=== PATIENT | male | born 1940 | race Caucasian/White ===

== ENCOUNTER 2020-11-16 21:52 | Inpatient (IN) | payer MEDICARE ==
[2020-11-16 23:01] LABS: Bilirubin Negative (Negative); Blood, Urine Negative (Negative); Clarity Clear (Clear); Glucose, Urine (Dipstick) Greater than 1000 mg/dL (Negative); Ketone, Urine Negative (Negative); Leukocyte Negative Leu/uL (Negative); Nitrite Negative (Negative); Protein, Urine (Dipstick) Negative (Neg-Trace); Specific Gravity, Urine 1.027 (1.002-1.036); Urobilinogen Normal mg/dL (Less than 2); pH, Urine 5.5 (5.0-9.0)
[2020-11-16 23:08] LABS: Hemoglobin 14.6 g/dL (14.0-18.0); Mean Corpuscular HGB CONC 33.7 g/dL (32.0-36.0); Mean Corpuscular Hemoglobin 31.8 pg (27.0-31.0); Mean Corpuscular Volume 94.3 fL (78.0-98.0); Mean Platelet Volume 7.1 fL (7.4-10.4); Platelet Count 169 thou/uL (130-400); Red Blood Cell (RBC) Count 4.59 mill/uL (4.70-6.10); White Blood Cell (WBC) Count 10.5 thou/uL (4.8-10.8)
[2020-11-16 23:25] LABS: Band 6 % (5-11); Lymphocytes 13 % (21-51); MDiff Complete? YES; Monocytes 4 % (0-10); Neutrophil 75 % (42-75); Platelet Morphology Comment Appears Adequate; RBC Morphology Normal; Reactive Lymphocytes 2 % (0-10)
[2020-11-16 23:29] LABS: ALT (SGPT) 14 U/L (8-55); AST (SGOT) 19 U/L (5-34); Albumin 3.5 g/dL (3.4-4.8); Alkaline Phosphatase 58 U/L (40-110); Anion Gap 13 mmol/L (10-20); BUN (Urea Nitrogen) 19 mg/dL (8.4-25.7); Bilirubin, Total 0.7 mg/dL (0.2-1.2); Calc. Creatinine Clearance 0 mL/min (70-130); Calcium 8.8 mg/dL (7.8-10.44); Carbon Dioxide 21 mmol/L (23-31); Chloride 108 mmol/L (98-107); Globulin 2.9 g/dL (2.4-3.5); Glucose 136 mg/dL (83-110); Lipase 30 U/L (8-78); Protein, Total 6.4 g/dL (5.8-8.1); Sodium 138 mmol/L (136-145)
[2020-11-16] MEDS ORDERED: Cefepime 1 GM VIAL ONE (23:35)
[2020-11-16] MEDS ORDERED: VANCOMYCIN 2 GRAM/400 ML BAG 2 GM in Premix Bag 1 BAG IVPB SCH (23:45)
[2020-11-17] MEDS ORDERED: Ondansetron PF 4 MG/2 ML Vial IVP PRN (02:45)
[2020-11-17] MEDS ORDERED: Acetaminophen 325 MG TAB PO PRN (02:45)
[2020-11-17] MEDS ORDERED: Ondansetron ODT 4 MG TAB SL PRN (02:45)
[2020-11-17 03:12] VITALS: BMI 39.3
[2020-11-17] MEDS ORDERED: HumaLOG 300 UNITS/3 ML VIAL SC PRN (04:17)
[2020-11-17] MEDS ORDERED: Dextrose 50% Abboject 50 ML SYRINGE SLOW IVP PRN (04:17)
[2020-11-17] MEDS ORDERED: Dextrose 5% in Water 1,000 ML IV PRN (04:17)
[2020-11-17] MEDS ORDERED: Benzonatate 100 MG CAP PO PRN (04:55)
[2020-11-17] MEDS ORDERED: Rivaroxaban 10 MG TAB PO SCH (09:00)
[2020-11-17] MEDS ORDERED: FLU VACC QS2020-21(65YR UP)/PF 240 MCG/0.7 ML SYRINGE IM ONE (09:00)
[2020-11-17] MEDS: Vancomycin 1 GM in Premix Bag 1 BAG IVPB SCH (11:53)
[2020-11-17] MEDS ORDERED: Cefepime 2 GM in Sodium Chloride 0.9% 100 ML IVPB SCH (12:00)
[2020-11-17] MEDS ORDERED: Polyethylene Glycol 3350 17 GM Packet PO PRN (18:46)
[2020-11-17] MEDS: Acetaminophen 325 MG TAB PO PRN (20:21)
[2020-11-17] MEDS: Metoprolol Tartrate 50 MG TAB PO SCH (20:26)
[2020-11-17] MEDS ORDERED: Tamsulosin HCl 0.4 MG CAP PO SCH (21:00)
[2020-11-18] MEDS: Vancomycin 1 GM in Premix Bag 1 BAG IVPB SCH (00:02)
[2020-11-18] MEDS: Acetaminophen 325 MG TAB PO PRN (01:47)
[2020-11-18 05:33] LABS: #Eosinphils 0.3 thou/uL (0.0-0.7); #Lymphocytes 1.3 thou/uL (1.20-3.40); #Monocytes 0.5 thou/uL (0.11-0.59); #Neutrophils 3.1 thou/uL (1.40-6.50); %Basophils 0.4 % (0.0-1.0); %Eosinophils 5.8 % (0.0-10.0); %Lymphocytes 24.8 % (21.0-51.0); %Monocytes 10.2 % (0.0-10.0); %Neutrophils 58.7 % (42.0-75.0); Hemoglobin 13.1 g/dL (14.0-18.0); Mean Corpuscular HGB CONC 33.8 g/dL (32.0-36.0); Mean Corpuscular Hemoglobin 32.1 pg (27.0-31.0); Mean Corpuscular Volume 94.8 fL (78.0-98.0); Mean Platelet Volume 7.1 fL (7.4-10.4); Platelet Count 159 thou/uL (130-400); RBC Distribution Width 12.9 % (11.5-14.5); Red Blood Cell (RBC) Count 4.09 mill/uL (4.70-6.10); White Blood Cell (WBC) Count 5.2 thou/uL (4.8-10.8)
[2020-11-18 05:52] LABS: Anion Gap 11 mmol/L (10-20); BUN (Urea Nitrogen) 11 mg/dL (8.4-25.7); Calc. Creatinine Clearance 118 mL/min (70-130); Calcium 8.1 mg/dL (7.8-10.44); Carbon Dioxide 22 mmol/L (23-31); Chloride 109 mmol/L (98-107); Glucose 132 mg/dL (83-110); Potassium 3.6 mmol/L (3.5-5.1); Sodium 138 mmol/L (136-145)
[2020-11-18] MEDS ORDERED: Bacitracin 1 PK TOP SCH (09:00)
[2020-11-18] MEDS ORDERED: lamoTRIgine 100 MG TAB PO SCH (09:00)
[2020-11-18] MEDS ORDERED: Non-Formulary Item 1 EACH (Lithium Carbonate [Lithium Carbonate] 300 MG Tablet) PO SCH (09:00)
[2020-11-18] MEDS ORDERED: Enoxaparin Sodium 30 MG/0.3 ML SYRINGE SC SCH (09:00)
[2020-11-18] MEDS ORDERED: Rivaroxaban 15 MG TAB PO SCH (09:00)
[2020-11-18] MEDS ORDERED: Empagliflozin 10 MG TAB PO SCH (09:00)
[2020-11-18] MEDS ORDERED: Atorvastatin Calcium 40 MG TAB PO SCH (09:00)
[2020-11-18] MEDS ORDERED: FENOFIBRATE 50 MG PO SCH (09:00)
[2020-11-18] MEDS ORDERED: Fenofibrate 48 MG TAB PO SCH (09:00)
[2020-11-18] MEDS ORDERED: LAMOTRIGINE 150 MG PO SCH (09:00)
[2020-11-18] MEDS ORDERED: Non-Formulary Item 1 EACH (Diltiazem Hcl [Diltiazem 12hr Er] 120 MG Cap.Er.12h) PO SCH (09:00)
[2020-11-18] MEDS ORDERED: Clopidogrel Bisulfate 75 MG TAB PO SCH (09:00)
[2020-11-18] MEDS: Metoprolol Tartrate 50 MG TAB PO SCH (09:04)
[2020-11-18 11:33] LABS: Vancomycin, Trough 12.3 ug/mL
[2020-11-18 11:40] VITALS: BP 114/67; TEMP 98
[2020-11-18] MEDS ORDERED: VANCOMYCIN 1.25 GM/250 ML BAG 1.25 GM in Premix Bag 1 BAG IVPB SCH (12:00)
== END 2020-11-18 14:57 | disposition home or self-care (01) | DRG 178 ==
LOC: ERS 21:52 → T4-B 11-17 01:17
PROVIDERS: ADMIT Internal Medicine; ATTEND Internal Medicine
DX: U07.1 COVID-19 (principal); L03.115 Cellulitis of right lower limb; R78.81 Bacteremia; I48.91 Unspecified atrial fibrillation; E78.5 Hyperlipidemia, unspecified; G47.33 Obstructive sleep apnea (adult) (pediatric); E11.22 Type 2 diabetes mellitus with diabetic chronic kidney disease; E11.621 Type 2 diabetes mellitus with foot ulcer; I12.9 Hypertensive chronic kidney disease with stage 1 through stage 4 chronic kidney disease, or unspecified chronic kidney disease; N18.30 Chronic kidney disease, stage 3 unspecified; B95.1 Streptococcus, group B, as the cause of diseases classified elsewhere; E66.9 Obesity, unspecified; L97.519 Non-pressure chronic ulcer of other part of right foot with unspecified severity; Z99.89 Dependence on other enabling machines and devices; Z88.5 Allergy status to narcotic agent; Z88.2 Allergy status to sulfonamides; Z68.39 Body mass index [BMI] 39.0-39.9, adult; Z90.49 Acquired absence of other specified parts of digestive tract; Z79.01 Long term (current) use of anticoagulants; Z79.02 Long term (current) use of antithrombotics/antiplatelets; Z79.84 Long term (current) use of oral hypoglycemic drugs; Z88.0 Allergy status to penicillin; Z79.899 Other long term (current) drug therapy
CPT/HCPCS: 36415; 36416; 80048; 80053; 80202; 81003; 83605; 83690; 84484; 85025; 85379; 87040; 87086; 93306; 96365; 96366; 96367; J0692; J3370